=== PATIENT | male | born 1970 | race Caucasian/White ===

== ENCOUNTER 2022-04-11 12:10 | Emergency (ER) | payer MEDICAID, SELFPAY ==
[2022-04-11 12:16] VITALS: BP 141/76; PULSE 90; RESP 16; TEMP 36.6; O2SAT 99; BMI 27.3
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
[2022-04-11] MEDS: Diphth,Pertus(ACell),Tet Adult 0.5 ML SYRINGE IM (13:06)
[2022-04-11] MEDS: Lidocaine HCl 1 % MPF 5 ML VIAL SUBCUT ×2 (13:06→13:07)
== END 2022-04-11 13:58 | disposition home or self-care (01) ==
PROVIDERS: Emergency Provider Emergency Medicine; PCP Family Medicine
DX: S01.21XA Laceration without foreign body of nose, initial encounter (principal); W20.8XXA Other cause of strike by thrown, projected or falling object, initial encounter; Y93.29 Activity, other involving ice and snow; Y92.038 Other place in apartment as the place of occurrence of the external cause; Y99.9 Unspecified external cause status
CPT/HCPCS: 12011; 90471; 90715; 99282; 99284